=== PATIENT | male | born 1975 | race Caucasian/White ===

== ENCOUNTER 2023-04-11 13:17 | Emergency (ER) | payer BC ==
[~2023-04-11] VITALS: Ht 170.2 cm; Wt 84.8 kg
[2023-04-11 13:42] VITALS: BP 125/109; PULSE 75; RESP 20; TEMP 97.5; O2SAT 99
[2023-04-11] MEDS ORDERED: CEPH-588 PO (15:14)
== END 2023-04-11 15:23 | disposition home or self-care (01) ==
LOC: MED 13:17
DX: L02.415 Cutaneous abscess of right lower limb (principal); Z79.899 Other long term (current) drug therapy
CPT/HCPCS: 99284